=== PATIENT | male | born 1970 | race Caucasian/White ===

== ENCOUNTER 2023-02-19 12:34 | Outpatient (CLI) | payer BC | END 2023-02-19 12:35 | disposition home or self-care (01) | LOC: TBSIIMAG 12:34 | PROVIDERS: ATTEND Physician Assistant | DX: S32.019D Unspecified fracture of first lumbar vertebra, subsequent encounter for fracture with routine healing (principal); M43.24 Fusion of spine, thoracic region; M43.26 Fusion of spine, lumbar region; S32.008S Other fracture of unspecified lumbar vertebra, sequela | CPT/HCPCS: 72070; 72100 ==

== ENCOUNTER 2023-04-22 11:58 | Outpatient (CLI) | payer BC | END 2023-04-22 11:59 | disposition home or self-care (01) | LOC: RAD 11:58 | PROVIDERS: ATTEND Neurological Surgery | DX: S32.008S Other fracture of unspecified lumbar vertebra, sequela (principal); M47.816 Spondylosis without myelopathy or radiculopathy, lumbar region; Z98.890 Other specified postprocedural states | CPT/HCPCS: 72080; 72100 ==